=== PATIENT | female | born 1960 | race Caucasian/White ===

== ENCOUNTER 2018-06-21 09:01 | Inpatient (IN) ==
[2018-06-21 11:13] LABS: Basophils % 0.3 % (0.0-0.8); Eosinophils # 0.3 10*3/uL (0.0-0.87); Eosinophils % 3.8 % (0.00-10.9); Hemoglobin 12.7 GM/DL (12.0-16.0); Immature Granulocytes % 0.2 %; Immature Granulocytes Absolute 0.02 #; Lymphocytes # 1.5 10*3/uL (1.4-4.0); Lymphocytes % 16.3 % (21.3-54.2); Mean Corpuscular HGB Conc 31.8 GM/DL (32-36); Mean Corpuscular Hemoglobin 29 PG (27-34); Mean Corpuscular Volume 89.7 FL (87-102); Mean Platelet Volume 9.6 FL (9.6-12.0); Monocytes # 0.8 10*3/uL (0.11-0.8); Monocytes % 8.5 % (1.7-12.7); Neutrophils # 6.3 10*3/uL (1.4-7.4); Neutrophils % 70.9 % (38.7-73.9); Platelet Count 141 T/CUMM (130-400); Red Blood Count 4.46 MC/CUMM (3.8-5.5); White Blood Count 8.9 T/CUMM (4-12)
[2018-06-21 11:45] LABS: Bilirubin,Total 0.8 MG/DL (0.2-1.0); Osmolality,Calculated 276.7 MOS/KG (273-304); Potassium 4.5 MMOL/L (3.5-5.1); Total Protein 7.6 G/DL (6.4-8.3)
[2018-06-21 12:17] LABS: Apearance,Urine Slightly Hazy (Clear); Bacteria,Urine Occasional /HPF (Few); Bilirubin,Urine Negative (Negative); Blood, Urine Negative (Negative); Glucose,Urine (UA) >=500 mg/dL (Negative); Hyaline Casts,Urine 1 /LPF (0-3); Ketones,Urine Negative (Negative); Mucus,Urine Occasional /LPF (Occasional); Nitrite,Urine Negative (Negative); Protein,Urine Negative; RBC,Urine 1 /HPF (0-4); Squamous Epithelial Cell,Urine Few /HPF (0-10); Urine Color Yellow (Yellow); Urine Specific Gravity 1.033 (1.001-1.035); Urine Urobilinogen < 2.0 EU/DL (0.2-1.0); WBC,Urine 6 /HPF (0-6)
[2018-06-21] MEDS ORDERED: CEFTAROLINE 600 MG in SODIUM CHLORIDE 0.9% 100 ML IV SCH (15:00)
[2018-06-21] MEDS ORDERED: ONDANSETRON 4 MG/2 ML VIAL IV PRN (15:04)
[2018-06-21] MEDS ORDERED: DEXTROSE 50% 25 GM/50 ML VIAL IV PRN (15:04)
[2018-06-21] MEDS ORDERED: GLUCAGON 1 MG VIAL IM PRN (15:04)
[2018-06-21] MEDS: INSULIN REGULAR 100 UNIT/ML SUBCUT SCH ×2 (17:05→21:07)
[2018-06-21] MEDS: SODIUM CHLORIDE 0.9% 1,000 ML IV SCH (17:07)
[2018-06-21] MEDS: PIPERACILLIN/TAZOBACTAM 3,375 MG in SODIUM CHLORIDE 0.9% 100 ML IV SCH (17:08)
[2018-06-21] MEDS: metFORMIN 500 MG TABLET PO SCH (21:06)
[2018-06-21] MEDS: INSULIN GLARGINE 100 UNIT/ML SUBCUT SCH (21:06)
[2018-06-21] MEDS: GABAPENTIN 300 MG CAPSULE PO SCH (21:06)
[2018-06-21] MEDS: LISINOPRIL 10 MG TABLET PO SCH (21:06)
[2018-06-21] MEDS: SERTRALINE 100 MG TABLET PO SCH (21:06)
[2018-06-21] MEDS: SIMVASTATIN 20 MG TABLET PO SCH (21:06)
[2018-06-21] MEDS: VANCOMYCIN INJ 1,250 MG in SODIUM CHLORIDE 0.9% 250 ML IV SCH (21:10)
[2018-06-22] MEDS: PIPERACILLIN/TAZOBACTAM 3,375 MG in SODIUM CHLORIDE 0.9% 100 ML IV SCH ×3 (00:43→18:29)
[2018-06-22 07:13] LABS: Basophils # 0.1 10*3/uL (0.0-0.2); Basophils % 0.6 % (0.0-0.8); Eosinophils # 0.3 10*3/uL (0.0-0.87); Hematocrit 38.9 VOL% (35.7-47.0); Hemoglobin 11.9 GM/DL (12.0-16.0); Immature Granulocytes % 0.4 %; Immature Granulocytes Absolute 0.03 #; Lymphocytes # 1.3 10*3/uL (1.4-4.0); Lymphocytes % 15.7 % (21.3-54.2); Mean Corpuscular HGB Conc 30.6 GM/DL (32-36); Mean Corpuscular Hemoglobin 28 PG (27-34); Mean Corpuscular Volume 89.8 FL (87-102); Mean Platelet Volume 9.7 FL (9.6-12.0); Monocytes # 0.7 10*3/uL (0.11-0.8); Monocytes % 8.7 % (1.7-12.7); Neutrophils # 5.9 10*3/uL (1.4-7.4); Neutrophils % 70.6 % (38.7-73.9); Platelet Count 143 T/CUMM (130-400); Red Blood Count 4.33 MC/CUMM (3.8-5.5); Red Cell Distribution Width 16.2 % (9.3-17.3); White Blood Count 8.3 T/CUMM (4-12)
[2018-06-22] MEDS: INSULIN REGULAR 100 UNIT/ML SUBCUT SCH ×4 (07:28→21:15)
[2018-06-22 07:37] LABS: Calcium 8.4 MG/DL (8.5-10.1); Osmolality,Calculated 278.4 MOS/KG (273-304); Potassium 4.1 MMOL/L (3.5-5.1)
[2018-06-22] MEDS: VANCOMYCIN INJ 1,250 MG in SODIUM CHLORIDE 0.9% 250 ML IV SCH ×2 (09:53→22:30)
[2018-06-22] MEDS: metFORMIN 500 MG TABLET PO SCH ×2 (13:23→21:14)
[2018-06-22] MEDS ORDERED: ROPIVACAINE 0.5% 30 ML VIAL ONE (15:05)
[2018-06-22] MEDS ORDERED: LIDOCAINE 1%/EPI INJ 20 ML VIAL ONE (15:05)
[2018-06-22] MEDS ORDERED: MIDAZOLAM 2 MG/2 ML VIAL ONE ×2 (15:39→17:48)
[2018-06-22] MEDS ORDERED: MIDAZOLAM 2 MG/2 ML VIAL IV ONE (16:08)
[2018-06-22] MEDS: ESTRADIOL 1 MG TABLET PO SCH (16:21)
[2018-06-22] MEDS: NON-FORMULARY MEDICATION (Canagliflozin [Invokana] 300 MG) PO SCH (16:21)
[2018-06-22] MEDS: PANTOPRAZOLE 40 MG TABLET PO SCH (16:22)
[2018-06-22] MEDS: GABAPENTIN 300 MG CAPSULE PO SCH ×2 (16:22→21:14)
[2018-06-22] MEDS ORDERED: PROPOFOL 200 MG/20 ML VIAL IV ONE (17:48)
[2018-06-22] MEDS ORDERED: KETOROLAC 30 MG/1 ML VIAL ONE (17:48)
[2018-06-22] MEDS ORDERED: ONDANSETRON 4 MG/2 ML VIAL ONE (17:48)
[2018-06-22] MEDS ORDERED: ETOMIDATE 40 MG/20 ML VIAL IV ONE (17:48)
[2018-06-22] MEDS ORDERED: DEXAMETHASONE 10 MG/1 ML VIAL ONE (17:48)
[2018-06-22] MEDS: SERTRALINE 100 MG TABLET PO SCH (21:14)
[2018-06-22] MEDS: SIMVASTATIN 20 MG TABLET PO SCH (21:14)
[2018-06-22] MEDS: LISINOPRIL 10 MG TABLET PO SCH (21:15)
[2018-06-22] MEDS: INSULIN GLARGINE 100 UNIT/ML SUBCUT SCH (21:15)
[2018-06-23] MEDS: SODIUM CHLORIDE 0.9% 1,000 ML IV SCH ×2 (01:19→01:20)
[2018-06-23] MEDS: PIPERACILLIN/TAZOBACTAM 3,375 MG in SODIUM CHLORIDE 0.9% 100 ML IV SCH ×3 (01:20→21:21)
[2018-06-23 05:32] LABS: Basophils % 0.3 % (0.0-0.8); Eosinophils % 0.1 % (0.00-10.9); Hematocrit 38.8 VOL% (35.7-47.0); Hemoglobin 11.9 GM/DL (12.0-16.0); Immature Granulocytes % 0.6 %; Immature Granulocytes Absolute 0.04 #; Lymphocytes # 0.8 10*3/uL (1.4-4.0); Lymphocytes % 11.2 % (21.3-54.2); Mean Corpuscular HGB Conc 30.7 GM/DL (32-36); Mean Corpuscular Hemoglobin 28 PG (27-34); Mean Corpuscular Volume 91.3 FL (87-102); Mean Platelet Volume 9.9 FL (9.6-12.0); Monocytes # 0.3 10*3/uL (0.11-0.8); Monocytes % 4.6 % (1.7-12.7); Neutrophils # 5.6 10*3/uL (1.4-7.4); Neutrophils % 83.2 % (38.7-73.9); Platelet Count 140 T/CUMM (130-400); Red Blood Count 4.25 MC/CUMM (3.8-5.5); Red Cell Distribution Width 16.1 % (9.3-17.3); White Blood Count 6.8 T/CUMM (4-12)
[2018-06-23 05:40] LABS: Calcium 8.1 MG/DL (8.5-10.1); Osmolality,Calculated 287.3 MOS/KG (273-304); Potassium 4.5 MMOL/L (3.5-5.1)
[2018-06-23] MEDS: INSULIN REGULAR 100 UNIT/ML SUBCUT SCH ×4 (08:29→21:20)
[2018-06-23] MEDS: NON-FORMULARY MEDICATION (Canagliflozin [Invokana] 300 MG) PO SCH (10:12)
[2018-06-23] MEDS: metFORMIN 500 MG TABLET PO SCH ×2 (10:12→21:20)
[2018-06-23] MEDS: ESTRADIOL 1 MG TABLET PO SCH (10:13)
[2018-06-23] MEDS: GABAPENTIN 300 MG CAPSULE PO SCH ×2 (10:13→21:20)
[2018-06-23] MEDS: PANTOPRAZOLE 40 MG TABLET PO SCH (10:13)
[2018-06-23] MEDS: VANCOMYCIN INJ 1,250 MG in SODIUM CHLORIDE 0.9% 250 ML IV SCH (10:22)
[2018-06-23] MEDS: MORPHINE 4 MG/1 ML VIAL IV PRN ×3 (10:22→21:21)
[2018-06-23] MEDS: LISINOPRIL 10 MG TABLET PO SCH (21:20)
[2018-06-23] MEDS: INSULIN GLARGINE 100 UNIT/ML SUBCUT SCH (21:20)
[2018-06-23] MEDS: SERTRALINE 100 MG TABLET PO SCH (21:20)
[2018-06-23] MEDS: SIMVASTATIN 20 MG TABLET PO SCH (21:20)
[2018-06-24] MEDS: VANCOMYCIN INJ 1,250 MG in SODIUM CHLORIDE 0.9% 250 ML IV SCH ×2 (01:48→13:26)
[2018-06-24] MEDS: PIPERACILLIN/TAZOBACTAM 3,375 MG in SODIUM CHLORIDE 0.9% 100 ML IV SCH ×2 (04:02→14:56)
[2018-06-24 05:31] LABS: Basophils % 0.5 % (0.0-0.8); Eosinophils # 0.2 10*3/uL (0.0-0.87); Eosinophils % 3.1 % (0.00-10.9); Hematocrit 35.9 VOL% (35.7-47.0); Hemoglobin 10.9 GM/DL (12.0-16.0); Immature Granulocytes % 0.4 %; Immature Granulocytes Absolute 0.03 #; Lymphocytes # 1.7 10*3/uL (1.4-4.0); Lymphocytes % 21.7 % (21.3-54.2); Mean Corpuscular HGB Conc 30.4 GM/DL (32-36); Mean Corpuscular Hemoglobin 28 PG (27-34); Mean Corpuscular Volume 92.5 FL (87-102); Mean Platelet Volume 9.8 FL (9.6-12.0); Monocytes # 0.6 10*3/uL (0.11-0.8); Monocytes % 7.6 % (1.7-12.7); Neutrophils # 5.2 10*3/uL (1.4-7.4); Neutrophils % 66.7 % (38.7-73.9); Platelet Count 146 T/CUMM (130-400); Red Blood Count 3.88 MC/CUMM (3.8-5.5); Red Cell Distribution Width 16.1 % (9.3-17.3); White Blood Count 7.8 T/CUMM (4-12)
[2018-06-24 06:00] LABS: Calcium 7.7 MG/DL (8.5-10.1)
[2018-06-24] MEDS: INSULIN REGULAR 100 UNIT/ML SUBCUT SCH ×4 (07:57→21:53)
[2018-06-24] MEDS: ESTRADIOL 1 MG TABLET PO SCH (09:21)
[2018-06-24] MEDS: metFORMIN 500 MG TABLET PO SCH ×2 (09:21→21:48)
[2018-06-24] MEDS: GABAPENTIN 300 MG CAPSULE PO SCH ×2 (09:21→21:49)
[2018-06-24] MEDS: PANTOPRAZOLE 40 MG TABLET PO SCH (09:21)
[2018-06-24] MEDS: NON-FORMULARY MEDICATION (Canagliflozin [Invokana] 300 MG) PO SCH (09:25)
[2018-06-24] MEDS: SODIUM CHLORIDE 0.9% 1,000 ML IV SCH (09:26)
[2018-06-24] MEDS: MORPHINE 4 MG/1 ML VIAL IV PRN ×2 (09:35→17:17)
[2018-06-24] MEDS ORDERED: ACETAMINOPHEN 325 MG TABLET PO PRN (14:02)
[2018-06-24] MEDS: INSULIN GLARGINE 100 UNIT/ML SUBCUT SCH (21:49)
[2018-06-24] MEDS: SERTRALINE 100 MG TABLET PO SCH (21:49)
[2018-06-24] MEDS: LISINOPRIL 10 MG TABLET PO SCH (21:49)
[2018-06-24] MEDS: SIMVASTATIN 20 MG TABLET PO SCH (21:49)
[2018-06-25] MEDS: VANCOMYCIN INJ 1,250 MG in SODIUM CHLORIDE 0.9% 250 ML IV SCH ×2 (00:49→10:49)
[2018-06-25 06:07] LABS: Basophils % 0.7 % (0.0-0.8); Eosinophils # 0.2 10*3/uL (0.0-0.87); Eosinophils % 4.2 % (0.00-10.9); Hematocrit 36.6 VOL% (35.7-47.0); Hemoglobin 11.2 GM/DL (12.0-16.0); Immature Granulocytes % 0.5 %; Immature Granulocytes Absolute 0.03 #; Lymphocytes # 1.4 10*3/uL (1.4-4.0); Lymphocytes % 23.8 % (21.3-54.2); Mean Corpuscular HGB Conc 30.6 GM/DL (32-36); Mean Corpuscular Hemoglobin 28 PG (27-34); Mean Corpuscular Volume 91.5 FL (87-102); Mean Platelet Volume 9.3 FL (9.6-12.0); Monocytes # 0.5 10*3/uL (0.11-0.8); Neutrophils # 3.6 10*3/uL (1.4-7.4); Neutrophils % 61.8 % (38.7-73.9); Platelet Count 131 T/CUMM (130-400); White Blood Count 5.8 T/CUMM (4-12)
[2018-06-25 06:27] LABS: Calcium 7.9 MG/DL (8.5-10.1); Osmolality,Calculated 287.8 MOS/KG (273-304); Potassium 4.1 MMOL/L (3.5-5.1)
[2018-06-25] MEDS: SODIUM CHLORIDE 0.9% 1,000 ML IV SCH ×2 (07:17→07:18)
[2018-06-25] MEDS: INSULIN REGULAR 100 UNIT/ML SUBCUT SCH ×4 (08:32→22:51)
[2018-06-25] MEDS: metFORMIN 500 MG TABLET PO SCH ×2 (08:33→21:06)
[2018-06-25] MEDS: ESTRADIOL 1 MG TABLET PO SCH (08:33)
[2018-06-25] MEDS: PANTOPRAZOLE 40 MG TABLET PO SCH (08:33)
[2018-06-25] MEDS: NON-FORMULARY MEDICATION (Canagliflozin [Invokana] 300 MG) PO SCH (08:33)
[2018-06-25] MEDS: GABAPENTIN 300 MG CAPSULE PO SCH ×2 (08:33→21:06)
[2018-06-25] MEDS: ENOXAPARIN 40 MG/0.4 ML SYRINGE SUBCUT SCH (10:49)
[2018-06-25] MEDS: DOXYCYCLINE HYCLATE 100 MG CAPSULE PO SCH ×2 (12:08→21:06)
[2018-06-25] MEDS: SIMVASTATIN 20 MG TABLET PO SCH (21:06)
[2018-06-25] MEDS: LISINOPRIL 10 MG TABLET PO SCH (21:06)
[2018-06-25] MEDS: SERTRALINE 100 MG TABLET PO SCH (21:06)
[2018-06-25] MEDS: INSULIN GLARGINE 100 UNIT/ML SUBCUT SCH (22:49)
[2018-06-26] MEDS: DOXYCYCLINE HYCLATE 100 MG CAPSULE PO SCH (08:00)
[2018-06-26] MEDS: GABAPENTIN 300 MG CAPSULE PO SCH (08:00)
[2018-06-26] MEDS: ESTRADIOL 1 MG TABLET PO SCH (08:00)
[2018-06-26] MEDS: metFORMIN 500 MG TABLET PO SCH (08:00)
[2018-06-26] MEDS: PANTOPRAZOLE 40 MG TABLET PO SCH (08:00)
[2018-06-26] MEDS: INSULIN REGULAR 100 UNIT/ML SUBCUT SCH ×2 (08:00→12:13)
[2018-06-26] MEDS: ENOXAPARIN 40 MG/0.4 ML SYRINGE SUBCUT SCH (08:06)
[2018-06-26 11:21] VITALS: BP 114/57
== END 2018-06-26 14:15 | disposition home or self-care (01) | DRG 988 ==
LOC: N.ED 09:01 → N.EDINP 15:04 → SUATTDRO 15:04 → N.EDINP 16:21 → N.2E 16:55
PROVIDERS: ADMIT Internal Medicine; ATTEND Hospitalist

== ENCOUNTER 2018-08-05 16:03 | Inpatient (IN) ==
[2018-08-05] MEDS ORDERED: PROMETHAZINE 25 MG/1 ML VIAL IM PRN (17:18)
[2018-08-05] MEDS ORDERED: HYDROmorphone 2 MG/1 ML VIAL IV PRN (17:18)
[2018-08-05] MEDS ORDERED: ACETAMINOPHEN 325 MG TABLET PO PRN (17:18)
[2018-08-05] MEDS ORDERED: GLUCAGON 1 MG VIAL IM PRN (17:18)
[2018-08-05] MEDS ORDERED: ONDANSETRON 4 MG/2 ML VIAL IV PRN (17:18)
[2018-08-05] MEDS ORDERED: DEXTROSE 50% 25 GM/50 ML VIAL IV PRN (17:18)
[2018-08-05 17:52] LABS: Basophils # 0.1 10*3/uL (0.0-0.2); Basophils % 0.9 % (0.0-0.8); Eosinophils # 0.3 10*3/uL (0.0-0.87); Hematocrit 38.8 VOL% (35.7-47.0); Immature Granulocytes % 0.4 %; Immature Granulocytes Absolute 0.02 #; Lymphocytes # 1.2 10*3/uL (1.4-4.0); Lymphocytes % 21.4 % (21.3-54.2); Mean Corpuscular HGB Conc 30.9 GM/DL (32-36); Mean Corpuscular Hemoglobin 28 PG (27-34); Mean Corpuscular Volume 88.8 FL (87-102); Mean Platelet Volume 10.3 FL (9.6-12.0); Monocytes # 0.4 10*3/uL (0.11-0.8); Monocytes % 7.4 % (1.7-12.7); Neutrophils # 3.5 10*3/uL (1.4-7.4); Neutrophils % 63.9 % (38.7-73.9); Platelet Count 112 T/CUMM (130-400); Red Blood Count 4.37 MC/CUMM (3.8-5.5); Red Cell Distribution Width 15.6 % (9.3-17.3); White Blood Count 5.5 T/CUMM (4-12)
[2018-08-05 18:10] LABS: Calcium 8.7 MG/DL (8.5-10.1); Osmolality,Calculated 285.5 MOS/KG (273-304); Potassium 4.3 MMOL/L (3.5-5.1)
[2018-08-05] MEDS: PIPERACILLIN/TAZOBACTAM 3,375 MG in SODIUM CHLORIDE 0.9% 100 ML IV SCH (18:45)
[2018-08-05] MEDS: LACTATED RINGERS 1,000 ML IV SCH (18:45)
[2018-08-05] MEDS: INSULIN REGULAR 100 UNIT/ML SUBCUT SCH (21:20)
[2018-08-05] MEDS: VANCOMYCIN INJ 1,250 MG in SODIUM CHLORIDE 0.9% 250 ML IV SCH (22:57)
[2018-08-06] MEDS: PIPERACILLIN/TAZOBACTAM 3,375 MG in SODIUM CHLORIDE 0.9% 100 ML IV SCH ×3 (02:38→17:03)
[2018-08-06 05:13] LABS: Basophils % 0.8 % (0.0-0.8); Eosinophils # 0.3 10*3/uL (0.0-0.87); Eosinophils % 5.6 % (0.00-10.9); Hematocrit 36.7 VOL% (35.7-47.0); Hemoglobin 11.4 GM/DL (12.0-16.0); Immature Granulocytes % 0.4 %; Immature Granulocytes Absolute 0.02 #; Lymphocytes # 1.1 10*3/uL (1.4-4.0); Lymphocytes % 21.1 % (21.3-54.2); Mean Corpuscular HGB Conc 31.1 GM/DL (32-36); Mean Corpuscular Hemoglobin 28 PG (27-34); Mean Corpuscular Volume 89.5 FL (87-102); Mean Platelet Volume 10.4 FL (9.6-12.0); Monocytes # 0.5 10*3/uL (0.11-0.8); Monocytes % 8.8 % (1.7-12.7); Neutrophils # 3.3 10*3/uL (1.4-7.4); Neutrophils % 63.3 % (38.7-73.9); Platelet Count 104 T/CUMM (130-400); Red Cell Distribution Width 15.5 % (9.3-17.3); White Blood Count 5.2 T/CUMM (4-12)
[2018-08-06 05:30] LABS: Calcium 8.1 MG/DL (8.5-10.1); Osmolality,Calculated 286.4 MOS/KG (273-304); Potassium 4.2 MMOL/L (3.5-5.1)
[2018-08-06] MEDS ORDERED: oxyCODONE IR 5 MG TABLET PO PRN (06:51)
[2018-08-06] MEDS: PANTOPRAZOLE 40 MG TABLET PO SCH (08:56)
[2018-08-06] MEDS: GABAPENTIN 300 MG CAPSULE PO SCH ×2 (08:56→21:36)
[2018-08-06] MEDS: ESTRADIOL 1 MG TABLET PO SCH (08:56)
[2018-08-06] MEDS: LACTATED RINGERS 1,000 ML IV SCH ×3 (08:58→18:16)
[2018-08-06] MEDS: ENOXAPARIN 40 MG/0.4 ML SYRINGE SUBCUT SCH (08:58)
[2018-08-06] MEDS: INSULIN REGULAR 100 UNIT/ML SUBCUT SCH ×4 (08:58→21:36)
[2018-08-06] MEDS: VANCOMYCIN INJ 1,250 MG in SODIUM CHLORIDE 0.9% 250 ML IV SCH ×2 (13:56→22:48)
[2018-08-06] MEDS ORDERED: SERTRALINE 100 MG TABLET PO SCH (21:00)
[2018-08-06] MEDS ORDERED: SIMVASTATIN 20 MG TABLET PO SCH (21:00)
[2018-08-06] MEDS ORDERED: LISINOPRIL 10 MG TABLET PO SCH (21:00)
[2018-08-07] MEDS: LACTATED RINGERS 1,000 ML IV SCH ×2 (01:15→15:53)
[2018-08-07] MEDS: PIPERACILLIN/TAZOBACTAM 3,375 MG in SODIUM CHLORIDE 0.9% 100 ML IV SCH ×2 (01:52→09:33)
[2018-08-07] MEDS ORDERED: metFORMIN 500 MG TABLET PO SCH (09:15)
[2018-08-07] MEDS: ENOXAPARIN 40 MG/0.4 ML SYRINGE SUBCUT SCH ×2 (09:21→09:39)
[2018-08-07] MEDS: PANTOPRAZOLE 40 MG TABLET PO SCH (09:21)
[2018-08-07] MEDS: ESTRADIOL 1 MG TABLET PO SCH (09:21)
[2018-08-07] MEDS: GABAPENTIN 300 MG CAPSULE PO SCH (09:22)
[2018-08-07] MEDS: INSULIN REGULAR 100 UNIT/ML SUBCUT SCH ×2 (09:30→14:10)
[2018-08-07 11:46] VITALS: BP 120/65
[2018-08-07] MEDS: VANCOMYCIN INJ 1,250 MG in SODIUM CHLORIDE 0.9% 250 ML IV SCH (14:10)
[2018-08-07] MEDS ORDERED: CHLORHEXIDINE 4% SOLN 118 ML BOTTLE TOP SCH (14:30)
[2018-08-07] MEDS ORDERED: SODIUM HYPOCHLORITE 0.25% IRRIG 473 ML BOTTLE TOP SCH (14:30)
[2018-08-07] MEDS ORDERED: INSULIN GLARGINE 100 UNIT/ML SUBCUT SCH (21:00)
== END 2018-08-07 16:30 | disposition home health service (06) | DRG 603 ==
LOC: N.5E 16:25
PROVIDERS: ADMIT Surgery; ATTEND Surgery

== ENCOUNTER 2019-01-25 11:50 | Inpatient (IN) ==
[2019-01-25] MEDS ORDERED: ONDANSETRON 4 MG/2 ML VIAL IV STA (12:27)
[2019-01-25] MEDS ORDERED: HYDROmorphone 2 MG/1 ML VIAL IV STA (12:27)
[2019-01-25 12:57] LABS: Basophils # 0.1 10*3/uL (0.0-0.2); Basophils % 0.7 % (0.0-0.8); Eosinophils # 0.2 10*3/uL (0.0-0.87); Eosinophils % 2.9 % (0.00-10.9); Hematocrit 33.8 VOL% (35.7-47.0); Hemoglobin 10.6 GM/DL (12.0-16.0); Immature Granulocytes % 0.4 %; Immature Granulocytes Absolute 0.03 #; Lymphocytes # 1.1 10*3/uL (1.4-4.0); Lymphocytes % 15.5 % (21.3-54.2); Mean Corpuscular HGB Conc 31.4 GM/DL (32-36); Mean Corpuscular Volume 89.2 FL (87-102); Mean Platelet Volume 9.9 FL (9.6-12.0); Monocytes % 7.7 % (1.7-12.7); Neutrophils % 72.8 % (38.7-73.9); Platelet Count 234 T/CUMM (130-400); Red Blood Count 3.79 MC/CUMM (3.8-5.5); Red Cell Distribution Width 17.2 % (9.3-17.3); White Blood Count 6.9 T/CUMM (4-12)
[2019-01-25 13:19] LABS: Alanine Aminotransferase 33 U/L (13-56); Albumin 2.2 G/DL (3.4-5.0); Alkaline Phosphatase 204 U/L (45-117); Aspartate Amino Transferase 45 U/L (0-37); Blood Urea Nitrogen 11 MG/DL (7-18); Calcium 8.3 MG/DL (8.5-10.1); Glucose 318 MG/DL (74-106); Osmolality,Calculated 291.3 MOS/KG (273-304); Total Protein 6.7 G/DL (6.4-8.3)
[2019-01-25 14:12] LABS: Apearance,Urine Slightly Hazy (Clear); Bacteria,Urine Few /HPF (Few); Bilirubin,Urine Negative (Negative); Blood, Urine Small mg/dL (Negative); Glucose,Urine (UA) 150 mg/dL (Negative); Ketones,Urine Negative (Negative); Mucus,Urine Occasional /LPF (Occasional); Nitrite,Urine Negative (Negative); Protein,Urine Negative; RBC,Urine 3 /HPF (0-4); Squamous Epithelial Cell,Urine Occasional /HPF (0-10); Urine Color Yellow (Yellow); Urine Specific Gravity 1.056 (1.001-1.035); Urine Urobilinogen < 2.0 EU/DL (0.2-1.0); WBC,Urine 3 /HPF (0-6)
[2019-01-25] MEDS ORDERED: DEXTROSE 10% 250 ML BAG IV PRN (16:08)
[2019-01-25] MEDS ORDERED: GLUCAGON 1 MG VIAL IM PRN (16:08)
[2019-01-25] MEDS: INSULIN LISPRO 100 UNIT/ML SUBCUT SCH ×2 (18:45→21:05)
[2019-01-25 18:47] LABS: Hepatitis B Core IgM Quant 0.05 Index; Hepatitis B Surface Ag Quant < 0.10 Index; Hepatitis B Surface Ag Result Negative (Negative); Hepatitis C Virus Ab Quant < 0.02 Index; Hepatitis C Virus Ab Result Negative (Negative)
[2019-01-25] MEDS: GABAPENTIN 300 MG CAPSULE PO SCH (21:03)
[2019-01-25] MEDS: LISINOPRIL 5 MG TABLET PO SCH (21:03)
[2019-01-25] MEDS: SIMVASTATIN 20 MG TABLET PO SCH (21:03)
[2019-01-25] MEDS: INSULIN GLARGINE 100 UNIT/ML SUBCUT SCH (21:03)
[2019-01-25] MEDS: SERTRALINE 100 MG TABLET PO SCH (21:03)
[2019-01-25] MEDS: CHOLESTYRAMINE ASPARTAME 4 GM PO SCH (21:05)
[2019-01-25] MEDS: glipiZIDE 10 MG TABLET PO SCH (21:07)
[2019-01-25 21:55] LABS: Cancer Antigen 19-9 50.8 U/ML (0-37); Carcinoembryonic Antigen 2.8 NG/ML (0.0-5.0)
[2019-01-26] MEDS: ONDANSETRON 4 MG/2 ML VIAL IV PRN ×2 (03:05→06:45)
[2019-01-26] MEDS: SODIUM CHLORIDE 0.9% 1,000 ML IV SCH (03:42)
[2019-01-26 05:47] LABS: Basophils # 0.1 10*3/uL (0.0-0.2); Basophils % 0.7 % (0.0-0.8); Eosinophils # 0.3 10*3/uL (0.0-0.87); Eosinophils % 3.1 % (0.00-10.9); Hemoglobin 10.5 GM/DL (12.0-16.0); Immature Granulocytes % 0.4 %; Immature Granulocytes Absolute 0.04 #; Lymphocytes # 1.3 10*3/uL (1.4-4.0); Lymphocytes % 13.8 % (21.3-54.2); Mean Corpuscular HGB Conc 30.9 GM/DL (32-36); Mean Corpuscular Volume 88.8 FL (87-102); Mean Platelet Volume 9.7 FL (9.6-12.0); Monocytes % 9.2 % (1.7-12.7); Neutrophils % 72.8 % (38.7-73.9); Platelet Count 254 T/CUMM (130-400); Red Blood Count 3.83 MC/CUMM (3.8-5.5); Red Cell Distribution Width 17.3 % (9.3-17.3)
[2019-01-26 06:18] LABS: Albumin 2.4 G/DL (3.4-5.0); Bilirubin,Total 0.7 MG/DL (0.2-1.0); Calcium 8.6 MG/DL (8.5-10.1); Risk Ratio 2.75; Total Protein 7.1 G/DL (6.4-8.3)
[2019-01-26] MEDS: CHOLESTYRAMINE ASPARTAME 4 GM PO SCH (08:16)
[2019-01-26] MEDS: GABAPENTIN 300 MG CAPSULE PO SCH ×2 (08:17→21:33)
[2019-01-26] MEDS: ESTRADIOL 1 MG TABLET PO SCH (08:18)
[2019-01-26] MEDS: glipiZIDE 10 MG TABLET PO SCH ×3 (08:18→21:34)
[2019-01-26] MEDS: PANTOPRAZOLE 40 MG TABLET PO SCH (08:18)
[2019-01-26] MEDS: LORazepam 0.5 MG TABLET PO PRN ×2 (12:30→21:33)
[2019-01-26] MEDS: INSULIN LISPRO 100 UNIT/ML SUBCUT SCH ×4 (13:35→21:32)
[2019-01-26] MEDS: POTASSIUM CHLORIDE 20 MEQ TABLET PO PRN ×2 (16:04→18:08)
[2019-01-26] MEDS ORDERED: CHOLESTYRAMINE 4 GM PACK PO SCH (21:00)
[2019-01-26] MEDS: INSULIN GLARGINE 100 UNIT/ML SUBCUT SCH (21:33)
[2019-01-26] MEDS: LISINOPRIL 5 MG TABLET PO SCH (21:33)
[2019-01-26] MEDS: SIMVASTATIN 20 MG TABLET PO SCH (21:34)
[2019-01-26] MEDS: CHOLESTYRAMINE/ASPARTAME 4 GM PACK PO SCH (21:34)
[2019-01-26] MEDS: SERTRALINE 100 MG TABLET PO SCH (21:34)
[2019-01-27] MEDS: SODIUM CHLORIDE 0.9% 1,000 ML IV SCH ×2 (03:16→23:24)
[2019-01-27 04:54] LABS: Basophils % 0.5 % (0.0-0.8); Eosinophils # 0.3 10*3/uL (0.0-0.87); Eosinophils % 4.4 % (0.00-10.9); Hemoglobin 9.5 GM/DL (12.0-16.0); Immature Granulocytes % 0.3 %; Immature Granulocytes Absolute 0.02 #; Lymphocytes # 1.2 10*3/uL (1.4-4.0); Lymphocytes % 18.9 % (21.3-54.2); Mean Corpuscular HGB Conc 30.6 GM/DL (32-36); Mean Corpuscular Volume 89.3 FL (87-102); Mean Platelet Volume 9.9 FL (9.6-12.0); Monocytes % 10.2 % (1.7-12.7); Neutrophils % 65.7 % (38.7-73.9); Platelet Count 214 T/CUMM (130-400); Red Blood Count 3.47 MC/CUMM (3.8-5.5); Red Cell Distribution Width 17.6 % (9.3-17.3); White Blood Count 6.1 T/CUMM (4-12)
[2019-01-27 05:35] LABS: Albumin 2.2 G/DL (3.4-5.0); Bilirubin,Total 0.8 MG/DL (0.2-1.0); Calcium 8.5 MG/DL (8.5-10.1); Osmolality,Calculated 285.8 MOS/KG (273-304); Total Protein 6.4 G/DL (6.4-8.3)
[2019-01-27] MEDS: INSULIN LISPRO 100 UNIT/ML SUBCUT SCH ×4 (08:36→22:13)
[2019-01-27] MEDS: ESTRADIOL 1 MG TABLET PO SCH (09:34)
[2019-01-27] MEDS: glipiZIDE 10 MG TABLET PO SCH ×2 (09:35→22:14)
[2019-01-27] MEDS: GABAPENTIN 300 MG CAPSULE PO SCH ×2 (09:35→22:11)
[2019-01-27] MEDS: CHOLESTYRAMINE/ASPARTAME 4 GM PACK PO SCH ×2 (09:35→22:11)
[2019-01-27] MEDS: PANTOPRAZOLE 40 MG TABLET PO SCH (09:35)
[2019-01-27] MEDS: LACTATED RINGERS 1,000 ML IV SCH (09:45)
[2019-01-27] MEDS ORDERED: LIDOCAINE 2% 5 ML VIAL ONE (10:00)
[2019-01-27] MEDS ORDERED: PROPOFOL 200 MG/20 ML VIAL IV ONE (10:00)
[2019-01-27] MEDS ORDERED: PNEUMOCOCCAL VACCINE (13 VALENT) 0.5 ML SYRINGE IM ONE (12:00)
[2019-01-27] MEDS ORDERED: MAGNESIUM SULF RIDER 2 GM in PREMIX 1 EACH IV PRN (13:53)
[2019-01-27] MEDS ORDERED: MAGNESIUM SULF RIDER 4 GM in PREMIX 1 EACH IV PRN (13:53)
[2019-01-27] MEDS: MORPHINE 4 MG/1 ML VIAL IV PRN ×2 (15:30→22:12)
[2019-01-27] MEDS: SIMVASTATIN 20 MG TABLET PO SCH (22:11)
[2019-01-27] MEDS: LISINOPRIL 5 MG TABLET PO SCH (22:11)
[2019-01-27] MEDS: SERTRALINE 100 MG TABLET PO SCH (22:11)
[2019-01-27] MEDS: INSULIN GLARGINE 100 UNIT/ML SUBCUT SCH (22:13)
[2019-01-28 05:24] LABS: Basophils % 0.5 % (0.0-0.8); Eosinophils # 0.3 10*3/uL (0.0-0.87); Eosinophils % 4.5 % (0.00-10.9); Hematocrit 32.1 VOL% (35.7-47.0); Hemoglobin 9.7 GM/DL (12.0-16.0); Immature Granulocytes % 0.3 %; Immature Granulocytes Absolute 0.02 #; Lymphocytes # 1.2 10*3/uL (1.4-4.0); Lymphocytes % 20.3 % (21.3-54.2); Mean Corpuscular HGB Conc 30.2 GM/DL (32-36); Mean Corpuscular Volume 90.7 FL (87-102); Monocytes % 10.1 % (1.7-12.7); Neutrophils % 64.3 % (38.7-73.9); Platelet Count 200 T/CUMM (130-400); Red Blood Count 3.54 MC/CUMM (3.8-5.5); Red Cell Distribution Width 17.7 % (9.3-17.3)
[2019-01-28 05:47] LABS: Albumin 2.2 G/DL (3.4-5.0); Bilirubin,Total 0.5 MG/DL (0.2-1.0); Calcium 8.8 MG/DL (8.5-10.1); Total Protein 6.7 G/DL (6.4-8.3)
[2019-01-28] MEDS: PANTOPRAZOLE 40 MG TABLET PO SCH (08:16)
[2019-01-28] MEDS: MORPHINE 4 MG/1 ML VIAL IV PRN ×3 (08:17→22:03)
[2019-01-28] MEDS: glipiZIDE 10 MG TABLET PO SCH ×2 (08:17→22:02)
[2019-01-28] MEDS: GABAPENTIN 300 MG CAPSULE PO SCH ×2 (08:17→22:01)
[2019-01-28] MEDS: CHOLESTYRAMINE/ASPARTAME 4 GM PACK PO SCH ×2 (08:17→22:03)
[2019-01-28] MEDS: ESTRADIOL 1 MG TABLET PO SCH (08:23)
[2019-01-28] MEDS ORDERED: diphenhydrAMINE 50 MG/1 ML VIAL IV ONE (09:04)
[2019-01-28] MEDS ORDERED: LORazepam 2 MG/1 ML VIAL IV ONE (09:04)
[2019-01-28] MEDS: INSULIN LISPRO 100 UNIT/ML SUBCUT SCH ×4 (10:50→22:02)
[2019-01-28] MEDS ORDERED: DIAZEPAM 5 MG TABLET PO ONE (11:19)
[2019-01-28 12:02] LABS: INR 1.2; PT Patient Result 13.2 SECS
[2019-01-28] MEDS: LACTATED RINGERS 1,000 ML IV SCH (20:45)
[2019-01-28] MEDS: SODIUM CHLORIDE 0.9% 1,000 ML IV SCH (22:00)
[2019-01-28] MEDS: SIMVASTATIN 20 MG TABLET PO SCH (22:01)
[2019-01-28] MEDS: LISINOPRIL 5 MG TABLET PO SCH (22:01)
[2019-01-28] MEDS: SERTRALINE 100 MG TABLET PO SCH (22:01)
[2019-01-28] MEDS: INSULIN GLARGINE 100 UNIT/ML SUBCUT SCH (22:02)
[2019-01-28] MEDS: ONDANSETRON 4 MG/2 ML VIAL IV PRN (22:04)
[2019-01-29 05:43] LABS: Basophils % 0.5 % (0.0-0.8); Eosinophils # 0.2 10*3/uL (0.0-0.87); Eosinophils % 4.3 % (0.00-10.9); Hematocrit 28.5 VOL% (35.7-47.0); Immature Granulocytes % 0.2 %; Immature Granulocytes Absolute 0.01 #; Lymphocytes # 1.1 10*3/uL (1.4-4.0); Lymphocytes % 19.7 % (21.3-54.2); Mean Corpuscular HGB Conc 31.6 GM/DL (32-36); Mean Corpuscular Volume 88.8 FL (87-102); Mean Platelet Volume 9.9 FL (9.6-12.0); Monocytes % 10.4 % (1.7-12.7); Neutrophils % 64.9 % (38.7-73.9); Platelet Count 187 T/CUMM (130-400); Red Blood Count 3.21 MC/CUMM (3.8-5.5); Red Cell Distribution Width 17.6 % (9.3-17.3); White Blood Count 5.6 T/CUMM (4-12)
[2019-01-29] MEDS: INSULIN LISPRO 100 UNIT/ML SUBCUT SCH ×4 (09:21→20:59)
[2019-01-29] MEDS: ESTRADIOL 1 MG TABLET PO SCH (09:24)
[2019-01-29] MEDS: PANTOPRAZOLE 40 MG TABLET PO SCH (09:24)
[2019-01-29] MEDS: MORPHINE 4 MG/1 ML VIAL IV PRN ×2 (09:26→16:54)
[2019-01-29] MEDS: FLUCONAZOLE INJ 200 MG in PREMIX 1 EACH IV SCH (09:39)
[2019-01-29] MEDS: GABAPENTIN 300 MG CAPSULE PO SCH ×2 (11:34→20:59)
[2019-01-29] MEDS: glipiZIDE 10 MG TABLET PO SCH ×2 (11:50→21:04)
[2019-01-29] MEDS: CHOLESTYRAMINE/ASPARTAME 4 GM PACK PO SCH ×2 (11:52→21:04)
[2019-01-29 13:11] LABS: Breast Carcinoma Ag(CA 27.29) 32.7 U/mL (<=38.0)
[2019-01-29] MEDS: SODIUM CHLORIDE 0.9% 1,000 ML IV SCH (16:29)
[2019-01-29] MEDS: LISINOPRIL 5 MG TABLET PO SCH (20:59)
[2019-01-29] MEDS: SIMVASTATIN 20 MG TABLET PO SCH (20:59)
[2019-01-29] MEDS: SERTRALINE 100 MG TABLET PO SCH (20:59)
[2019-01-29] MEDS: INSULIN GLARGINE 100 UNIT/ML SUBCUT SCH (21:00)
[2019-01-29] MEDS: LACTATED RINGERS 1,000 ML IV SCH (21:02)
[2019-01-30] MEDS: SODIUM CHLORIDE 0.9% 1,000 ML IV SCH (00:47)
[2019-01-30] MEDS: GABAPENTIN 300 MG CAPSULE PO SCH ×2 (09:44→21:00)
[2019-01-30] MEDS: PANTOPRAZOLE 40 MG TABLET PO SCH (09:44)
[2019-01-30] MEDS: INSULIN LISPRO 100 UNIT/ML SUBCUT SCH ×4 (09:45→21:00)
[2019-01-30] MEDS: ESTRADIOL 1 MG TABLET PO SCH (09:46)
[2019-01-30] MEDS: MORPHINE 4 MG/1 ML VIAL IV PRN ×3 (09:48→22:37)
[2019-01-30] MEDS: CHOLESTYRAMINE/ASPARTAME 4 GM PACK PO SCH (09:50)
[2019-01-30] MEDS: LIDOCAINE 5% PATCH TRANSDERM SCH (10:44)
[2019-01-30] MEDS: glipiZIDE 10 MG TABLET PO SCH ×2 (10:45→22:36)
[2019-01-30] MEDS: FLUCONAZOLE INJ 200 MG in PREMIX 1 EACH IV SCH (10:46)
[2019-01-30] MEDS ORDERED: BISACODYL 5 MG TABLET PO ONE (12:00)
[2019-01-30] MEDS ORDERED: POLYETHYLENE GLYCOL POWDER 255 GM BOTTLE PO ONE (18:00)
[2019-01-30] MEDS: INSULIN GLARGINE 100 UNIT/ML SUBCUT SCH (21:00)
[2019-01-30] MEDS: SIMVASTATIN 20 MG TABLET PO SCH (22:36)
[2019-01-30] MEDS: SERTRALINE 100 MG TABLET PO SCH (22:36)
[2019-01-30] MEDS: LISINOPRIL 5 MG TABLET PO SCH (22:37)
[2019-01-31] MEDS: ONDANSETRON 4 MG/2 ML VIAL IV PRN (01:02)
[2019-01-31] MEDS: CHOLESTYRAMINE/ASPARTAME 4 GM PACK PO SCH ×3 (03:07→21:28)
[2019-01-31] MEDS: SODIUM CHLORIDE 0.9% 1,000 ML IV SCH ×2 (03:35→17:15)
[2019-01-31] MEDS: LACTATED RINGERS 1,000 ML IV SCH ×2 (03:35→20:44)
[2019-01-31] MEDS ORDERED: LIDOCAINE 1% 5 ML VIAL ONE (09:00)
[2019-01-31] MEDS ORDERED: PROPOFOL 200 MG/20 ML VIAL IV ONE (09:00)
[2019-01-31] MEDS ORDERED: PHENYLEPHRINE 1 MG/10 ML SYRINGE IV ONE (09:00)
[2019-01-31] MEDS: LIDOCAINE 5% PATCH TRANSDERM SCH (09:18)
[2019-01-31] MEDS: INSULIN LISPRO 100 UNIT/ML SUBCUT SCH ×4 (09:20→21:32)
[2019-01-31] MEDS: FLUCONAZOLE INJ 200 MG in PREMIX 1 EACH IV SCH (09:21)
[2019-01-31] MEDS: glipiZIDE 10 MG TABLET PO SCH ×2 (13:20→21:20)
[2019-01-31] MEDS: GABAPENTIN 300 MG CAPSULE PO SCH ×2 (13:20→21:20)
[2019-01-31] MEDS: PANTOPRAZOLE 40 MG TABLET PO SCH (13:20)
[2019-01-31] MEDS: ESTRADIOL 1 MG TABLET PO SCH (13:20)
[2019-01-31] MEDS: LISINOPRIL 5 MG TABLET PO SCH (21:20)
[2019-01-31] MEDS: SERTRALINE 100 MG TABLET PO SCH (21:20)
[2019-01-31] MEDS: SIMVASTATIN 20 MG TABLET PO SCH (21:28)
[2019-01-31] MEDS: MORPHINE 4 MG/1 ML VIAL IV PRN (23:45)
[2019-02-01] MEDS: INSULIN GLARGINE 100 UNIT/ML SUBCUT SCH ×2 (00:03→21:56)
[2019-02-01] MEDS: MORPHINE 4 MG/1 ML VIAL IV PRN ×2 (08:48→21:30)
[2019-02-01] MEDS: FLUCONAZOLE INJ 200 MG in PREMIX 1 EACH IV SCH (08:51)
[2019-02-01] MEDS: LIDOCAINE 5% PATCH TRANSDERM SCH (08:54)
[2019-02-01] MEDS: ESTRADIOL 1 MG TABLET PO SCH (08:54)
[2019-02-01] MEDS: PANTOPRAZOLE 40 MG TABLET PO SCH (08:54)
[2019-02-01] MEDS: GABAPENTIN 300 MG CAPSULE PO SCH ×2 (08:54→21:30)
[2019-02-01] MEDS: glipiZIDE 10 MG TABLET PO SCH ×2 (08:54→21:30)
[2019-02-01] MEDS: CHOLESTYRAMINE/ASPARTAME 4 GM PACK PO SCH ×2 (08:54→21:30)
[2019-02-01] MEDS: INSULIN LISPRO 100 UNIT/ML SUBCUT SCH ×4 (13:07→21:29)
[2019-02-01] MEDS: LISINOPRIL 5 MG TABLET PO SCH (21:30)
[2019-02-01] MEDS: SERTRALINE 100 MG TABLET PO SCH (21:30)
[2019-02-01] MEDS: LACTATED RINGERS 1,000 ML IV SCH (21:31)
[2019-02-01] MEDS: SODIUM CHLORIDE 0.9% 1,000 ML IV SCH (21:31)
[2019-02-01] MEDS: SIMVASTATIN 20 MG TABLET PO SCH (21:57)
[2019-02-02] MEDS: MORPHINE 4 MG/1 ML VIAL IV PRN ×3 (03:34→21:34)
[2019-02-02] MEDS: INSULIN LISPRO 100 UNIT/ML SUBCUT SCH ×4 (08:52→21:00)
[2019-02-02] MEDS ORDERED: HYDROCORTISONE 1% OINT 28.35 GM TUBE TOP PRN (08:56)
[2019-02-02] MEDS ORDERED: HYDROCORTISONE 1% CREAM 28 GM TUBE TOP PRN (09:30)
[2019-02-02] MEDS: glipiZIDE 10 MG TABLET PO SCH ×2 (10:38→21:33)
[2019-02-02] MEDS: GABAPENTIN 300 MG CAPSULE PO SCH ×2 (10:38→21:33)
[2019-02-02] MEDS: ESTRADIOL 1 MG TABLET PO SCH (10:38)
[2019-02-02] MEDS: PANTOPRAZOLE 40 MG TABLET PO SCH (10:38)
[2019-02-02] MEDS: LIDOCAINE 5% PATCH TRANSDERM SCH (10:39)
[2019-02-02] MEDS: FLUCONAZOLE INJ 200 MG in PREMIX 1 EACH IV SCH (10:39)
[2019-02-02] MEDS: CHOLESTYRAMINE/ASPARTAME 4 GM PACK PO SCH ×2 (10:40→21:33)
[2019-02-02] MEDS: SODIUM CHLORIDE 0.9% 1,000 ML IV SCH (20:02)
[2019-02-02] MEDS: LACTATED RINGERS 1,000 ML IV SCH (20:03)
[2019-02-02] MEDS: SERTRALINE 100 MG TABLET PO SCH (21:30)
[2019-02-02] MEDS: LISINOPRIL 5 MG TABLET PO SCH (21:33)
[2019-02-02] MEDS: SIMVASTATIN 20 MG TABLET PO SCH (21:33)
[2019-02-02] MEDS: INSULIN GLARGINE 100 UNIT/ML SUBCUT SCH (21:33)
[2019-02-03] MEDS: SODIUM CHLORIDE 0.9% 1,000 ML IV SCH (04:00)
[2019-02-03 05:51] LABS: Basophils % 0.4 % (0.0-0.8); Eosinophils # 0.3 10*3/uL (0.0-0.87); Eosinophils % 6.3 % (0.00-10.9); Hematocrit 32.7 VOL% (35.7-47.0); Hemoglobin 9.9 GM/DL (12.0-16.0); Immature Granulocytes % 0.4 %; Immature Granulocytes Absolute 0.02 #; Lymphocytes # 0.9 10*3/uL (1.4-4.0); Lymphocytes % 18.6 % (21.3-54.2); Mean Corpuscular HGB Conc 30.3 GM/DL (32-36); Mean Corpuscular Volume 89.8 FL (87-102); Monocytes % 10.3 % (1.7-12.7); Platelet Count 179 T/CUMM (130-400); Red Blood Count 3.64 MC/CUMM (3.8-5.5); Red Cell Distribution Width 17.6 % (9.3-17.3)
[2019-02-03 06:05] LABS: Calcium 8.8 MG/DL (8.5-10.1)
[2019-02-03] MEDS: CHOLESTYRAMINE/ASPARTAME 4 GM PACK PO SCH ×2 (08:18→21:05)
[2019-02-03] MEDS: LIDOCAINE 5% PATCH TRANSDERM SCH (08:19)
[2019-02-03] MEDS: glipiZIDE 10 MG TABLET PO SCH ×2 (08:19→21:03)
[2019-02-03] MEDS: GABAPENTIN 300 MG CAPSULE PO SCH ×2 (08:19→21:03)
[2019-02-03] MEDS: ESTRADIOL 1 MG TABLET PO SCH (08:19)
[2019-02-03] MEDS: PANTOPRAZOLE 40 MG TABLET PO SCH (08:20)
[2019-02-03] MEDS: MORPHINE 4 MG/1 ML VIAL IV PRN ×2 (08:30→21:07)
[2019-02-03] MEDS: INSULIN LISPRO 100 UNIT/ML SUBCUT SCH ×4 (08:34→23:04)
[2019-02-03] MEDS: FLUCONAZOLE INJ 200 MG in PREMIX 1 EACH IV SCH (08:34)
[2019-02-03] MEDS: KETOROLAC 10 MG TABLET PO PRN (12:38)
[2019-02-03] MEDS: LISINOPRIL 5 MG TABLET PO SCH (21:03)
[2019-02-03] MEDS: SIMVASTATIN 20 MG TABLET PO SCH (21:04)
[2019-02-03] MEDS: SERTRALINE 100 MG TABLET PO SCH (21:04)
[2019-02-03] MEDS: INSULIN GLARGINE 100 UNIT/ML SUBCUT SCH (21:04)
[2019-02-04 04:54] LABS: Basophils % 0.8 % (0.0-0.8); Eosinophils # 0.4 10*3/uL (0.0-0.87); Eosinophils % 7.4 % (0.00-10.9); Hematocrit 32.3 VOL% (35.7-47.0); Immature Granulocytes % 0.2 %; Immature Granulocytes Absolute 0.01 #; Lymphocytes % 21.8 % (21.3-54.2); Mean Corpuscular Volume 90.5 FL (87-102); Neutrophils % 59.8 % (38.7-73.9); Platelet Count 169 T/CUMM (130-400); Red Blood Count 3.57 MC/CUMM (3.8-5.5); Red Cell Distribution Width 17.4 % (9.3-17.3); White Blood Count 4.7 T/CUMM (4-12)
[2019-02-04] MEDS: INSULIN LISPRO 100 UNIT/ML SUBCUT SCH ×2 (08:49→12:54)
[2019-02-04] MEDS: CHOLESTYRAMINE/ASPARTAME 4 GM PACK PO SCH (08:50)
[2019-02-04] MEDS: ESTRADIOL 1 MG TABLET PO SCH (08:52)
[2019-02-04] MEDS: GABAPENTIN 300 MG CAPSULE PO SCH (08:53)
[2019-02-04] MEDS: glipiZIDE 10 MG TABLET PO SCH (08:53)
[2019-02-04] MEDS: PANTOPRAZOLE 40 MG TABLET PO SCH (08:53)
[2019-02-04] MEDS: KETOROLAC 10 MG TABLET PO PRN (08:54)
[2019-02-04] MEDS: LIDOCAINE 5% PATCH TRANSDERM SCH (08:57)
[2019-02-04] MEDS: FLUCONAZOLE INJ 200 MG in PREMIX 1 EACH IV SCH (11:34)
[2019-02-04 12:06] VITALS: BP 115/67
[2019-02-06 08:31] LABS: 5-Hydroxyindoleacetic Acid, U 3.7 mg/24 h (<=8.1)
== END 2019-02-04 16:12 | disposition home or self-care (01) | DRG 441 ==
LOC: N.ED 11:50 → N.EDINP 16:07 → SUATTDRO 16:07 → N.EDINP 17:55 → N.4E 18:05
PROVIDERS: ADMIT Internal Medicine; ATTEND Family Medicine

== ENCOUNTER 2019-02-19 15:00 | Inpatient (IN) ==
[2019-02-19] MEDS ORDERED: SODIUM CHLORIDE 0.9% 1,000 ML IV STA (16:24)
[2019-02-19] MEDS ORDERED: METOCLOPRAMIDE 10 MG/2 ML VIAL IV STA (16:25)
[2019-02-19] MEDS ORDERED: PANTOPRAZOLE 40 MG VIAL IV STA (16:25)
[2019-02-19] MEDS ORDERED: ONDANSETRON 4 MG/2 ML VIAL IV STA (16:25)
[2019-02-19] MEDS ORDERED: DICYCLOMINE 20 MG/2 ML AMP IM ONE (16:25)
[2019-02-19 16:53] LABS: Basophils % 0.3 % (0.0-0.8); Eosinophils # 0.3 10*3/uL (0.0-0.87); Eosinophils % 4.4 % (0.00-10.9); Hematocrit 32.9 VOL% (35.7-47.0); Hemoglobin 10.3 GM/DL (12.0-16.0); Immature Granulocytes % 0.3 %; Immature Granulocytes Absolute 0.02 #; Lymphocytes # 1.1 10*3/uL (1.4-4.0); Lymphocytes % 17.1 % (21.3-54.2); Mean Corpuscular HGB Conc 31.3 GM/DL (32-36); Mean Corpuscular Volume 90.1 FL (87-102); Mean Platelet Volume 9.9 FL (9.6-12.0); Monocytes % 8.2 % (1.7-12.7); Neutrophils % 69.7 % (38.7-73.9); Platelet Count 155 T/CUMM (130-400); Red Blood Count 3.65 MC/CUMM (3.8-5.5); Red Cell Distribution Width 16.7 % (9.3-17.3); White Blood Count 6.3 T/CUMM (4-12)
[2019-02-19 17:15] LABS: Alanine Aminotransferase 38 U/L (13-56); Albumin 2.6 G/DL (3.4-5.0); Alkaline Phosphatase 162 U/L (45-117); Aspartate Amino Transferase 45 U/L (0-37); Blood Urea Nitrogen 10 MG/DL (7-18); Calcium 8.8 MG/DL (8.5-10.1); Glucose 244 MG/DL (74-106); Osmolality,Calculated 289.1 MOS/KG (273-304); Total Protein 7.7 G/DL (6.4-8.3)
[2019-02-19 17:17] LABS: Apearance,Urine Slightly Hazy (Clear); Bacteria,Urine Many /HPF (Few); Bilirubin,Urine Negative (Negative); Blood, Urine Negative (Negative); Glucose,Urine (UA) 50 mg/dL (Negative); Ketones,Urine Negative (Negative); Mucus,Urine Occasional /LPF (Occasional); Nitrite,Urine Negative (Negative); Protein,Urine Negative; RBC,Urine 1 /HPF (0-4); Squamous Epithelial Cell,Urine Occasional /HPF (0-10); Urine Color Yellow (Yellow); Urine Specific Gravity 1.016 (1.001-1.035); Urine Urobilinogen < 2.0 EU/DL (0.2-1.0); WBC,Urine 2 /HPF (0-6)
[2019-02-19] MEDS ORDERED: GLUCAGON 1 MG VIAL IM PRN (19:19)
[2019-02-19] MEDS ORDERED: DEXTROSE 10% 250 ML BAG IV PRN (19:19)
[2019-02-19] MEDS ORDERED: hydrALAZINE 20 MG/1 ML VIAL IV PRN (20:34)
[2019-02-19] MEDS ORDERED: cefTRIAXone 1,000 MG in SYRINGE 1 EACH IV SCH (21:00)
[2019-02-19] MEDS ORDERED: ENOXAPARIN 40 MG/0.4 ML SYRINGE SUBCUT SCH (21:00)
[2019-02-19] MEDS: SODIUM CHLORIDE 0.9% 1,000 ML IV SCH (21:53)
[2019-02-19] MEDS: GABAPENTIN 300 MG CAPSULE PO SCH (21:53)
[2019-02-19] MEDS: MORPHINE 4 MG/1 ML VIAL IV PRN (21:54)
[2019-02-19] MEDS: SERTRALINE 100 MG TABLET PO SCH (21:54)
[2019-02-19] MEDS: SIMVASTATIN 20 MG TABLET PO SCH (21:54)
[2019-02-19] MEDS: CHOLESTYRAMINE/ASPARTAME 4 GM PACK PO SCH (21:58)
[2019-02-19] MEDS: INSULIN REGULAR 100 UNIT/ML SUBCUT SCH (21:59)
[2019-02-20 06:11] LABS: Basophils % 0.5 % (0.0-0.8); Eosinophils # 0.3 10*3/uL (0.0-0.87); Eosinophils % 5.2 % (0.00-10.9); Hemoglobin 9.5 GM/DL (12.0-16.0); Immature Granulocytes % 0.4 %; Immature Granulocytes Absolute 0.02 #; Lymphocytes # 1.1 10*3/uL (1.4-4.0); Lymphocytes % 20.1 % (21.3-54.2); Mean Corpuscular HGB Conc 30.6 GM/DL (32-36); Mean Corpuscular Volume 91.7 FL (87-102); Mean Platelet Volume 10.3 FL (9.6-12.0); Monocytes % 8.6 % (1.7-12.7); Neutrophils % 65.2 % (38.7-73.9); Platelet Count 144 T/CUMM (130-400); Red Blood Count 3.38 MC/CUMM (3.8-5.5); Red Cell Distribution Width 16.8 % (9.3-17.3); White Blood Count 5.6 T/CUMM (4-12)
[2019-02-20] MEDS: SODIUM CHLORIDE 0.9% 1,000 ML IV SCH ×3 (06:27→22:00)
[2019-02-20 06:34] LABS: Albumin 2.5 G/DL (3.4-5.0); Bilirubin,Total 0.8 MG/DL (0.2-1.0); Calcium 8.7 MG/DL (8.5-10.1); Osmolality,Calculated 279.1 MOS/KG (273-304); Risk Ratio 3.22; Total Protein 6.8 G/DL (6.4-8.3); VLDL CHOLESTEROL 20.4 MG/DL
[2019-02-20] MEDS: INSULIN REGULAR 100 UNIT/ML SUBCUT SCH ×4 (08:48→21:56)
[2019-02-20] MEDS: CHOLESTYRAMINE/ASPARTAME 4 GM PACK PO SCH ×2 (09:11→21:57)
[2019-02-20] MEDS: GABAPENTIN 300 MG CAPSULE PO SCH ×2 (09:11→21:57)
[2019-02-20] MEDS: PANTOPRAZOLE 40 MG TABLET PO SCH (09:11)
[2019-02-20] MEDS: MORPHINE 4 MG/1 ML VIAL IV PRN ×3 (12:04→21:57)
[2019-02-20] MEDS: SERTRALINE 100 MG TABLET PO SCH (21:57)
[2019-02-20] MEDS: SIMVASTATIN 20 MG TABLET PO SCH (21:57)
[2019-02-21 04:42] LABS: Basophils % 0.5 % (0.0-0.8); Eosinophils # 0.3 10*3/uL (0.0-0.87); Eosinophils % 6.8 % (0.00-10.9); Hematocrit 30.2 VOL% (35.7-47.0); Hemoglobin 9.3 GM/DL (12.0-16.0); Immature Granulocytes % 0.2 %; Immature Granulocytes Absolute 0.01 #; Lymphocytes # 0.8 10*3/uL (1.4-4.0); Lymphocytes % 19.6 % (21.3-54.2); Mean Corpuscular HGB Conc 30.8 GM/DL (32-36); Mean Corpuscular Volume 90.7 FL (87-102); Mean Platelet Volume 10.5 FL (9.6-12.0); Monocytes % 10.1 % (1.7-12.7); Neutrophils % 62.8 % (38.7-73.9); Platelet Count 132 T/CUMM (130-400); Red Blood Count 3.33 MC/CUMM (3.8-5.5); Red Cell Distribution Width 16.8 % (9.3-17.3); White Blood Count 4.2 T/CUMM (4-12)
[2019-02-21 05:23] LABS: Albumin 2.4 G/DL (3.4-5.0); Bilirubin,Direct 0.14 MG/DL (0.0-0.20); Bilirubin,Indirect 0.6 MG/DL (0.0-1.0); Bilirubin,Total 0.7 MG/DL (0.2-1.0); Calcium 8.4 MG/DL (8.5-10.1); Osmolality,Calculated 291.8 MOS/KG (273-304); Total Protein 6.9 G/DL (6.4-8.3)
[2019-02-21] MEDS: SODIUM CHLORIDE 0.9% 1,000 ML IV SCH ×2 (06:01→16:07)
[2019-02-21] MEDS ORDERED: MAGNESIUM SULF RIDER 2 GM in PREMIX 1 EACH IV ONE (08:30)
[2019-02-21] MEDS: INSULIN REGULAR 100 UNIT/ML SUBCUT SCH ×4 (09:01→21:30)
[2019-02-21] MEDS: CHOLESTYRAMINE/ASPARTAME 4 GM PACK PO SCH ×2 (09:01→21:30)
[2019-02-21] MEDS: GABAPENTIN 300 MG CAPSULE PO SCH ×2 (09:01→21:30)
[2019-02-21] MEDS: PANTOPRAZOLE 40 MG TABLET PO SCH (09:01)
[2019-02-21] MEDS: MORPHINE 4 MG/1 ML VIAL IV PRN ×3 (13:01→21:33)
[2019-02-21] MEDS: SIMVASTATIN 20 MG TABLET PO SCH (21:30)
[2019-02-21] MEDS: SERTRALINE 100 MG TABLET PO SCH (21:30)
[2019-02-22] MEDS: SODIUM CHLORIDE 0.9% 1,000 ML IV SCH ×3 (00:16→16:00)
[2019-02-22] MEDS: INSULIN REGULAR 100 UNIT/ML SUBCUT SCH ×3 (09:18→16:30)
[2019-02-22] MEDS: ONDANSETRON 4 MG/2 ML VIAL IV PRN ×2 (09:18→15:53)
[2019-02-22] MEDS: CHOLESTYRAMINE/ASPARTAME 4 GM PACK PO SCH (09:18)
[2019-02-22] MEDS: GABAPENTIN 300 MG CAPSULE PO SCH (09:19)
[2019-02-22] MEDS: PANTOPRAZOLE 40 MG TABLET PO SCH (09:19)
[2019-02-22] MEDS: MORPHINE 4 MG/1 ML VIAL IV PRN ×2 (09:19→15:54)
[2019-02-22 19:15] VITALS: BP 148/77
== END 2019-02-22 17:45 | disposition home or self-care (01) | DRG 392 ==
LOC: N.ED 15:00 → SUATTDRO 19:11 → N.EDINP 19:11 → N.5E 19:53
PROVIDERS: ADMIT Internal Medicine; ATTEND Internal Medicine